=== PATIENT | female | born 1990 | race Hispanic/Latino ===

== ENCOUNTER 2017-11-09 18:21 | Inpatient (IN) | payer MEDICAID ==
[~2017-11-09] VITALS: Ht 149.9 cm; Wt 66.7 kg
[2017-11-09 19:00] LABS: APPEARANCE,URINE Cloudy (CLEAR); BILIRUBIN,URINE Negative (NEGATIVE); COLOR,URINE Yellow (YELLOW); GLUCOSE, URINE (UA) Negative (NEGATIVE); KETONES,URINE Negative (NEGATIVE); LEUKOCYTE ESTERASE ,URINE Small (NEGATIVE); NITRATE,URINE Negative (NEGATIVE); OCCULT BLOOD,URINE Nonhemolyzed Trace (NEGATIVE); PROTEIN,URINE POS 1+ (NEGATIVE)
[2017-11-09 19:35] LABS: BACTERIA,URINE Few /HPF (None Seen); RBC,URINE None Seen /HPF (0-1); SQUAMOUS EPITHELIAL CELL,UR 30-50 /HPF (0-2); WBC,URINE 0-1 /HPF (0-1)
[2017-11-09 19:59] LABS: HEMATOCRIT 29.7 % (36-48); MEAN CORPUSCULAR HEMOGLOBIN 27.8 pg (27.0-33.0); MEAN CORPUSCULAR HGB CONC 33.8 g/dL (32.0-36.0); MEAN CORPUSCULAR VOLUME 82.4 fL (79-99); NUCLEATED RED BLOOD CELLS 0.1 % (0.0-0.19); PLATELET COUNT (AUTO) 201 K/uL (130-400); WHITE BLOOD COUNT (AUTO) 8.1 K/uL (4.8-10.8)
[2017-11-09] MEDS ORDERED: MEPERIDINE-PF 50 MG/ML SYG IM PRN (22:15)
[2017-11-09] MEDS ORDERED: PROMETHAZINE HCL 25 MG/ML 1ML AMPULE IM PRN (22:15)
[2017-11-09] MEDS: LACTATED RINGERS 1000ML 1,000 ML IV PRN (22:39)
[2017-11-10] VITALS (9 sets, daily range): BP systolic 100–123; BP diastolic 47–73
[2017-11-10] MEDS: LACTATED RINGERS 1000ML 1,000 ML IV PRN ×3 (01:00→05:06)
[2017-11-10] MEDS ORDERED: OXYTOCIN 10 USP UNITS/ML 20 UNIT in LACTATED RINGERS 1000ML 1,000 ML IV SCH (03:00)
[2017-11-10] MEDS ORDERED: OXYTOCIN 10 USP UNITS/ML ONE ×2 (04:05→09:11)
[2017-11-10] MEDS ORDERED: LACTATED RINGERS 1000ML 1,000 ML IV ONE (04:05)
[2017-11-10] MEDS ORDERED: DIPH,PERTUSS(ACELL),TET VAC/PF 0.5 ML VIAL IM PRN (08:45)
[2017-11-10] MEDS: OXYTOCIN-LR 20 UNITS/1000 ML 1,000 ML IV SCH (08:45)
[2017-11-10] MEDS ORDERED: MEASLES/MUMPS/RUBELLA VACCINE, LIVE 0.5 ML/VIAL SQ PRN (08:45)
[2017-11-10] MEDS ORDERED: BENZOCAINE/LANOLIN/ALOE VERA 60 ML AEROSOL TP PRN (08:45)
[2017-11-10] MEDS ORDERED: WITCH HAZEL 1 PAD TP PRN (08:45)
[2017-11-10] MEDS ORDERED: LANOLIN 30GM OINTMENT TP PRN (08:45)
[2017-11-10] MEDS: DOCUSATE SODIUM 100 MG CAP PO SCH ×2 (09:47→20:35)
[2017-11-10] MEDS: IBUPROFEN 800 MG TAB PO PRN (09:48)
[2017-11-10] MEDS ORDERED: DIPH,PERTUSS(ACELL),TET VAC/PF 0.5 ML VIAL IM SCH (15:30)
[2017-11-10] MEDS: ACETAMINOPHEN 325 MG TAB PO PRN (16:16)
[2017-11-11] MEDS: IBUPROFEN 800 MG TAB PO PRN (03:46)
[2017-11-11 04:47] VITALS: BP 102/64
[2017-11-11 05:29] LABS: HEMATOCRIT 30.4 % (36-48); MEAN CORPUSCULAR HEMOGLOBIN 27.6 pg (27.0-33.0); MEAN CORPUSCULAR HGB CONC 32.9 g/dL (32.0-36.0); MEAN CORPUSCULAR VOLUME 83.8 fL (79-99); PLATELET COUNT (AUTO) 146 K/uL (130-400); RED BLOOD CELL COUNT(AUTO) 3.63 MIL/uL (4.00-5.50); WHITE BLOOD COUNT (AUTO) 7.8 K/uL (4.8-10.8)
[2017-11-11 07:35] LABS: HEPATITIS Bs ANTIGEN SCREEN P Negative (Negative)
[2017-11-11 08:30] VITALS: BP 105/65
[2017-11-11] MEDS: OXYTOCIN-LR 20 UNITS/1000 ML 1,000 ML IV SCH (08:45)
[2017-11-11] MEDS: DOCUSATE SODIUM 100 MG CAP PO SCH (09:45)
[2017-11-11] MEDS: ACETAMINOPHEN 325 MG TAB PO PRN (09:47)
[2017-11-11 11:54] VITALS: BP 105/64
== END 2017-11-11 14:25 | disposition home or self-care (01) | DRG 560 ==
LOC: LDH 18:21 → OBSVTOIN 18:21 → WSH 22:52 → LDH 11-10 03:43 → WSH 11-10 08:25
PROVIDERS: ADMIT Obstetrics & Gynecology; ATTEND Obstetrics & Gynecology
PROC: 10E0XZZ Delivery of Products of Conception, External Approach (ICD-10-PCS; principal; 2017-11-10)
PROC: 3E0234Z Introduction of Serum, Toxoid and Vaccine into Muscle, Percutaneous Approach (ICD-10-PCS; 2017-11-10)
PROC: 3E0134Z Introduction of Serum, Toxoid and Vaccine into Subcutaneous Tissue, Percutaneous Approach (ICD-10-PCS; 2017-11-10)
DX: O98.52 Other viral diseases complicating childbirth (principal); B00.9 Herpesviral infection, unspecified; D64.9 Anemia, unspecified; O99.02 Anemia complicating childbirth; Z37.0 Single live birth; Z3A.37 37 weeks gestation of pregnancy; Z23 Encounter for immunization
CPT/HCPCS: 36415; 81001; 85027; 86592; 86850; 86900; 86901; 87340; 90715; A4351; A4606; J2175; J2550; J2590; J7120